=== PATIENT | male | born 1950 | race Caucasian/White ===

== ENCOUNTER 2020-10-08 09:00 | Outpatient (RCR) | payer MEDICARE, OTHER, SELFPAY ==
--- NOTE | 2020-08-26 10:29 | PTOPEVAL ---
PHYSICAL THERAPY EVALUATION AND PLAN OF CARE 08-26-20 Thank you for referring Mark Rush to [facility] for the diagnosis of lymphedema.? He is scheduled to be seen for therapy? 2 x/week for 6 weeks. Please review, sign, date and return this plan of care JYOTHI. I agree with and certify that the following plan of care is medically necessary. Referring Physician Date Attending Provider: Kevin Morrow MD *PT Outpatient Evaluation Document 08/26/20 09:21 SARA (Rec: 08/26/20 10:28 SARA [id number]) Past Medical History Source of Past Medical History Patient,Family/Significant Other Neurological History Hx Neurological Disorders No Significant History Cardiovascular History Hx Coronary Stent Yes Hx Hypertension Yes: no meds at this time, monitoring Hx Myocardial Infarction Yes Respiratory History Hx Other Respiratory Disorders Yes: smoker Gastrointestinal History Hx Other Gastrointestinal Disorders Yes: PEG tube intact- flushing only now due to eating Genitourinary History Hx Genitourinary Disorders No Significant History Musculoskeletal History Hx Back Pain Yes Hx Orthopedic Surgery Yes: R elbow tendonitis/ surgery Hx Spinal Surgery Yes: cervical and lumbar surgery Endocrine History Hx Endocrine Disorders No Significant History HEENT History Hx Other HEENT Disorders Yes: [place] [employer]-hearing aides- do not wear Integumentary History Hx Skin Disorders No Significant History Reproductive History Hx Reproductive Disorders No Significant History Other History Hx Cancer Yes: larynx-- this admission Evaluation Information Problem Diagnosis lymphedema Onset 06-18-20 Prior Level of Function Activity Level (Last 3 Months) Occupation retired Hand Dominance Right Activity of Daily Living Ability Independent Indoor/Home Mobility Independent Community Mobility Independent Stairs Ability Independent Functional Cognition (Planning, Shopping Independent , Taking Medications) Cooking Yes Cleaning Yes Laundry Yes Shopping Yes Driving Yes Home Setting Home Type House Living Situation With Spouse Mobility Assistive Devices (Used Last 3 None Months) Comments Additional Prior Level of Function reports getting his endurance Comments back, stated ab
--- NOTE | 2020-09-25 10:02 | PCPTNOTE ---
Pt no showed for appointment today. Called woke up pt's , stated she had called and left a message that Mark is in the hospital with pneumonia . Apologized for not getting the message. Imformed pt tht he will need an order from his doctor to return to therapy.
--- NOTE | 2020-09-30 09:17 | PCPTNOTE ---
Pt no showed today , Pt's called 10 minutes after josé miguel to see if dr had faxed a new order for pt to return to therapy due to being in the hospital with pneumonia. [place] Lilian Brewster looked up in the computer and no new order had been received yet. Called pt's back to tell her and she stated she would call the dr's office again.
--- NOTE | 2020-10-08 10:34 | PTOPEVAL ---
PHYSICAL THERAPY DISCHARGE 10-08-20 Refer to the clinical summary below for his status today, compared to the initial evaluation. The goals were partially achieved--lymphedema education was completed, but he made minimal improvements with circumferential measurements and tissue integrity. Recommendation was made for compression garment, which he stated he will order and he is in the process of trying to obtain a home intermittent compression pump. Thank you for referring Mark Rush to [facility].? Please review, sign, date and return this Discharge JYOTHI. I agree with and certify that the following plan of care is medically necessary. Referring Physician Date Attending Provider: Kevin Rivera MD Document 10/08/20 09:00 SARA (Rec: 10/08/20 09:25 SARA [id number]) Assessment Status Discharge Subjective Information Mark and his report he Query Text:As Reported By Patient/ had a cautorization over the Family larengectomy site 2 days ago; have completed the paperwork for nonprofit financial controller for the home compression pump; to see highway administrative engineer for small open area over L neck; to see blood dr about low white cell count; is doing massage and reports the firmness is less after do massage, but varies; is doing OK with swallowing and eating; agree to discharge from PT services. Pain Assessment Timing of Pain Assessment Timing of Pain Assessment Assessment Pain Scale Pain Scale Used Numeric (1 - 10) Self Report Pain Assessment Bilateral Neck Reported Pain Level 2 Pain Frequency Chronic,Continuous Other Pain Description always sore in neck Lowest Pain Intensity 2 Greatest Pain Intensity 4 Pain Score Pain Score 2: Self Report Interventions Used Interventions Used By Clinicians Education Other Alleviating Interventions rub neck Cervical and Lumbar ROM Cervical ROM Cervical ROM Comments active cervical rotation R 40' / L 50' without pain, but report tightness; extension to neutral; Lymphedema Evaluation Skin Inspection Location Head/Neck/Face Skin Observations Hyperpigmentation,Hyperplasia, Shiny, Dry, Pale Skin,Wound/ Ulceration Palpation Findings Cool Skin Temperature,Non- Pitting Edema Tissue Texture Hard
== END 2020-10-10 08:19 | disposition home or self-care (01) ==
LOC: ANHPT 09:00
DX: I89.0 Lymphedema, not elsewhere classified (principal); Z85.89 Personal history of malignant neoplasm of other organs and systems; Z92.3 Personal history of irradiation
CPT/HCPCS: 97110; 97140; 97161